=== PATIENT | female | born 1995 | race Hispanic/Latino ===

== ENCOUNTER 2022-06-28 10:03 | Outpatient (CLI) | payer OTHER | END 2022-06-28 10:04 | disposition home or self-care (01) | LOC: CSHULT 10:03 | PROVIDERS: ATTEND Nurse Practitioner Women's Health | DX: O46.93 Antepartum hemorrhage, unspecified, third trimester (principal); Z3A.29 29 weeks gestation of pregnancy | CPT/HCPCS: 76815 ==

== ENCOUNTER 2022-08-31 01:55 | Inpatient (IN) | payer BC, OTHER ==
[2022-08-31 02:39] VITALS: BMI 36.5
[2022-08-31] MEDS ORDERED: hydrALAZINE 20 MG/ML VIAL SLOW IVP PRN ×3 (02:44→08:30)
[2022-08-31] MEDS ORDERED: Lidocaine 1% (PF) 30 ML VIAL SC PRN (03:30)
[2022-08-31] MEDS ORDERED: Ondansetron PF 4 MG/2 ML Vial IVP PRN ×2 (03:30→08:30)
[2022-08-31] MEDS ORDERED: Methylergonovine 0.2 MG/ML VIAL IM PRN (03:30)
[2022-08-31] MEDS ORDERED: Promethazine HCl 25 MG/ML VIAL IM PRN ×2 (03:30→08:30)
[2022-08-31] MEDS ORDERED: NS w/ Oxytocin 30 units 500 ML IV SCH (03:30)
[2022-08-31] MEDS ORDERED: Misoprostol 200 MCG TAB PR PRN (03:30)
[2022-08-31] MEDS ORDERED: Tranexamic Acid 1,000 MG/10 ML VIAL IVP PRN (03:30)
[2022-08-31] MEDS ORDERED: Carboprost 250 MCG/ML AMP IM PRN (03:30)
[2022-08-31] MEDS ORDERED: Penicillin G Potassium 5 MILL.UNITS in Sodium Chloride 0.9% 100 ML IVPB SCH (04:00)
[2022-08-31 04:45] LABS: HBSAg Index 0.15 S/CO (0-0.99); Hep B Surf Ag - L&D Non-Reactive S/CO (NonReactive)
[2022-08-31 04:46] LABS: Hemoglobin 8.8 g/dL (12.0-15.5); Mean Corpuscular HGB CONC 27.8 g/dL (32.0-36.0); Mean Platelet Volume 10.1 fl (7.4-10.4); Platelet Count 278 10x3/uL (150-450); RBC Distribution Width 19.4 % (11.5-14.5); Red Blood Cell (RBC) Count 4.88 10x6/uL (3.90-5.03); White Blood Cell (WBC) Count 12.1 10x3/uL (3.5-10.5)
[2022-08-31 04:47] LABS: Syphilis Antibody Nonreactive (Nonreactive); Syphilis Antibody Index 0.03 S/CO (<1.00 Non-Reactive)
[2022-08-31 06:31] LABS: Glucose 119 mg/dL (70-105)
[2022-08-31] MEDS ORDERED: Bisacodyl 10 MG SUPP PR PRN (08:30)
[2022-08-31] MEDS ORDERED: Benzocaine-Menthol 82.5 ML CAN TOP PRN (08:30)
[2022-08-31] MEDS ORDERED: Boostrix 0.5 ML (Tdap) VIAL (>/=7 yrs of age) IM ONE (08:30)
[2022-08-31] MEDS ORDERED: HYDROcodone/Acetaminophen 5/325 mg Tablet PO PRN (08:30)
[2022-08-31] MEDS ORDERED: diphenhydrAMINE 25 MG CAP PO PRN (08:30)
[2022-08-31] MEDS ORDERED: Milk Of Magnesia 30 ML UDCUP PO PRN (08:30)
[2022-08-31] MEDS ORDERED: Tranexamic Acid 1,000 MG in Sodium Chloride 0.9% 250 ML 250 ML IVPB SCH (08:45)
[2022-08-31] MEDS ORDERED: Carboprost 250 MCG/ML AMP ONE ×2 (08:46→09:08)
[2022-08-31] MEDS ORDERED: Tranexamic Acid 1,000 MG/10 ML VIAL ONE (08:46)
[2022-08-31] MEDS ORDERED: Carboprost 250 MCG/ML AMP IM SCH (08:47)
[2022-08-31] MEDS ORDERED: Penicillin G 2.5 MILL.units 2.5 MILL.UNITS in Premix Bag 1 BAG IVPB SCH (09:00)
[2022-08-31] MEDS ORDERED: Diphenoxylate HCl/Atropine Tablet PO SCH (09:00)
[2022-08-31] MEDS ORDERED: Ondansetron PF 4 MG/2 ML Vial ONE (09:14)
[2022-08-31] MEDS ORDERED: Prenatal Vitamin 1 TAB PO SCH (10:00)
[2022-08-31] MEDS ORDERED: Docusate 100 MG CAP PO SCH (10:00)
[2022-08-31] MEDS ORDERED: Ferrous Sulfate 325 MG TAB PO SCH (10:00)
[2022-08-31 11:52] LABS: D-Dimer Test 3.99 mg/L FEU (0.19-0.50); INR-International Normal Ratio 0.9; PTT 21.9 sec (22.0-33.0); Prothrombin Time 9.5 sec (9.5-12.1)
[2022-08-31] MEDS: Ibuprofen 800 MG TAB PO SCH ×2 (13:49→21:06)
[2022-08-31] MEDS: Ferrous Sulfate 325 MG TAB PO SCH (17:10)
[2022-08-31] MEDS: Docusate 100 MG CAP PO SCH (21:06)
[2022-09-01] MEDS: Ibuprofen 800 MG TAB PO SCH ×3 (05:58→22:17)
[2022-09-01] MEDS: Docusate 100 MG CAP PO SCH ×2 (08:49→22:17)
[2022-09-01] MEDS: Ferrous Sulfate 325 MG TAB PO SCH ×2 (08:49→16:55)
[2022-09-01] MEDS: Prenatal Vitamin 1 TAB PO SCH (08:49)
[2022-09-01 09:07] LABS: Hemoglobin 5.7 g/dL (12.0-15.5); Mean Corpuscular HGB CONC 28.1 g/dL (32.0-36.0); Mean Corpuscular Hemoglobin 18.4 pg (27.0-33.0); Mean Corpuscular Volume 65.7 fl (81.6-98.3); Mean Platelet Volume 10.8 fl (7.4-10.4); Platelet Count 214 10x3/uL (150-450); RBC Distribution Width 19.1 % (11.5-14.5); Red Blood Cell (RBC) Count 3.09 10x6/uL (3.90-5.03); White Blood Cell (WBC) Count 19.6 10x3/uL (3.5-10.5)
[2022-09-02 04:34] LABS: Hemoglobin 7.4 g/dL (12.0-15.5); Mean Corpuscular HGB CONC 29.7 g/dL (32.0-36.0); Mean Corpuscular Volume 70.5 fl (81.6-98.3); Mean Platelet Volume 10.5 fl (7.4-10.4); Platelet Count 214 10x3/uL (150-450); RBC Distribution Width 21.6 % (11.5-14.5); Red Blood Cell (RBC) Count 3.53 10x6/uL (3.90-5.03); White Blood Cell (WBC) Count 16.3 10x3/uL (3.5-10.5)
[2022-09-02] MEDS: Ibuprofen 800 MG TAB PO SCH ×2 (05:46→13:53)
[2022-09-02 07:56] VITALS: BP 113/64; TEMP 98.5
[2022-09-02] MEDS: Prenatal Vitamin 1 TAB PO SCH (08:44)
[2022-09-02] MEDS: Docusate 100 MG CAP PO SCH (08:44)
[2022-09-02] MEDS: Ferrous Sulfate 325 MG TAB PO SCH (08:44)
[2022-09-02] MEDS ORDERED: Fleet Saline Enema 133 ML BOT ONE (12:18)
== END 2022-09-02 15:05 | disposition home or self-care (01) | DRG 806 ==
LOC: CSHLD/OP 01:55 → CSHLD 03:34 → CSHPP 12:30
PROVIDERS: ADMIT Family Medicine; ATTEND Family Medicine
PROC: 10E0XZZ Delivery of Products of Conception, External Approach (ICD-10-PCS; principal; 2022-08-31)
PROC: 0KQM0ZZ Repair Perineum Muscle, Open Approach (ICD-10-PCS; 2022-08-31)
PROC: 30233N1 Transfusion of Nonautologous Red Blood Cells into Peripheral Vein, Percutaneous Approach (ICD-10-PCS; 2022-09-01)
DX: O24.429 Gestational diabetes mellitus in childbirth, unspecified control (principal); D62 Acute posthemorrhagic anemia; Z37.0 Single live birth; O72.1 Other immediate postpartum hemorrhage; O99.824 Streptococcus B carrier state complicating childbirth; O70.1 Second degree perineal laceration during delivery; O90.81 Anemia of the puerperium; Z3A.38 38 weeks gestation of pregnancy
CPT/HCPCS: 36415; 36416; 36430; 82947; 85027; 85049; 85300; 85362; 85379; 85384; 85610; 85730; 86780; 86850; 86900; 86901; 87340; 99285; J2210; J2405; J2540; J3490; J7050; P9016